=== PATIENT | female | born 1995 | race Caucasian/White ===

== ENCOUNTER 2024-10-27 15:20 | Outpatient (RCR) | payer SELFPAY ==
[2024-10-27 16:46] LABS: HCG Quantitative 522 mIU/mL
[2024-10-29 12:57] LABS: HCG Quantitative 1210 mIU/mL
== END 2024-10-31 12:31 | disposition home or self-care (01) ==
LOC: LAB 15:20
PROVIDERS: PCP Obstetrics & Gynecology; Visit Provider Obstetrics & Gynecology
DX: N92.6 Irregular menstruation, unspecified (principal)
CPT/HCPCS: 36415; 84702

== ENCOUNTER 2024-10-30 09:18 | Emergency (ER) | payer MEDICAID, SELFPAY ==
[2024-10-30 09:24] VITALS: BP 134/79; PULSE 76; TEMP 36.6; O2SAT 99; BMI 37.6
--- NOTE | 2024-10-30 09:34 | ED_ITS ---
HPI HPI - General Adult General Chief complaint: Vaginal Bleeding Stated complaint: VAGINAL BLEEDING/2-3 WEEKS Time Seen by Provider: 10/30/24 09:21 Source: patient Mode of arrival: walk-in Limitations: no limitations History of Present Illness HPI narrative: 29-year-old female who is 1 para 0 presents for light vaginal bleeding. LMP was September 07. Yesterday she had outpatient hCG titer and it was 1210. For 2 days she has had light spotting, only when she wipes. It has not been as heavy as a regular period. She has had some slight cramping but no severe pain. Related Data Home Medications ?Medication ?Instructions ?Recorded ?Confirmed No Known Home Medications 10/30/24 10/30/24 Allergies Allergy/AdvReac Type Severity Reaction Status Date / Time amoxicillin Allergy Severe Anaphylaxis Verified 10/30/24 09:23 Opioid HPI Opioid Management Most Recent Opioid Data: No Data to Display Review of Systems ROS Narrative A ten point review of systems is negative except as noted above. PFSH PFSH Social History Little interest or pleasure in doing things: not at all Feeling down, depressed, or hopeless: not at all Exam Narrative Exam Narrative: Nurses note and vital signs reviewed and patient is not hypoxic. General: The patient appears well and in no apparent distress. Patient is resting comfortably on cart. Skin: Warm, dry, no pallor noted. There is no rash noted. Head: Normocephalic, atraumatic Eye: Normal conjunctiva, no drainage Ears, Nose, Mouth, and Throat: oral mucosa is moist. Nares patent. Cardiovascular: Regular Rate and Rhythm Respiratory: Patient is in no distress, no accessory muscle use, lungs are clear to auscultation, no wheezing, rales or rhonchi Back: non-tender GI: Soft and nontender Musculoskeletal: The patient has no evidence of calf tenderness, no pitting edema, symmetrical pulses noted bilaterally Neurological: A&O, normal speech Psychiatric: Cooperative Constitutional Vital Signs, click to edit/add: Last Vital Signs Temp 98 F 10/30/24 09:24 Pulse 76 10/30/24 09:24 Resp 18 10/30/24 09:24 BP 134/79 10/30/24 09:24 Pulse Ox 99 10/30/24 09:24 O2 Del Method Room Air 10/30/24 09:24 Course Vital Signs Vital signs: Vital Signs Temperature 98 F 10/30/24 09:24 Pulse Rate 76 10/30/24 09:24 Respiratory Rate 18 10/30/24 09:24 Blood Pressure 134/79 10/30/24 09:24 Pulse Oximetry 99 10/30/24 09:24 Oxygen Delivery Method Room Air 10/30/24 09:24 Temperature 98 F 10/30/24 09:24 Pulse Rate 76 10/30/24 09:24 Respiratory Rate 18 10/30/24 09:24 Blood Pressure 134/79 10/30/24 09:24 Pulse Oximetry 99 10/30/24 09:24 Oxygen Delivery Method Room Air 10/30/24 09:24 Medical Decision Making MDM Narrative Medical decision making narrative: hCG titer is 451, yesterday it was 1210. Blood type is be positive. Case discussed with Dr. Seals and the patient will be discharged home. He will see her in the office this week. I have no clinical suspicion of an ectopic . Findings were discussed thoroughly with the patient. Treatment diagnosis and follow-up were discussed with the patient. Differential Diagnosis Differential Diagnosis: Miscarriage, ectopic , vaginal bleeding in Lab Data Lab results reviewed: Yes I reviewed the patient's lab results Labs: Lab Results 10/30/24 Range/Units 09:35 WBC 10.1 (4.0-11.0) 10^3/uL RBC 4.67 (4.20-5.40) 10^6/uL Hgb 13.7 (12.0-16.0) g/dL Hct 39.7 (36.0-48.0) % MCV 85.0 (81.0-99.0) fL MCH 29.3 (26.7-34.0) pg MCHC 34.5 (29.9-35.2) g/dL RDW 12.3 (11.0-15.0) % Plt Count 401 (150-450) 10^3/uL MPV 9.5 (9.5-13.5) fL Neut % (Auto) 62.9 (43.0-75.0) % Lymph % (Auto) 28.3 (20.5-60.0) % Butler % (Auto) 6.4 (1.7-12.0) % Eos % (Auto) 1.3 (0.9-7.0) % Baso % (Auto) 0.8 (0.2-2.0) % Neut # (Auto) 6.4 (1.4-6.5) 10^3/uL Lymph # (Auto) 2.9 (1.2-3.8) 10^3/uL Butler # (Auto) 0.7 (0.3-0.8) 10^3/uL Eos # (Auto) 0.1 (0.0-0.7) 10^3/uL Baso # (Auto) 0.1 (0.0-0.1) 10^3/uL Abs Immat Gran (auto) 0.03 (0.00-0.03) 10^3/uL Imm/Tot Granulo (auto) 0.3 (0.0-0.5) % Sodium 140 (136-145) mmol/L Potassium 4.0 (3.5-5.1) mmol/L Chloride 104 (98-107) mmol/L Carbon Dioxide 26.0 (21.0-32.0) mmol/L Anion Gap 14.0 BUN 11.0 (7.0-18.0) mg/dL Creatinine 0.79 (0.55-1.02) mg/dL Est GFR ( Amer) >60 (>=60 mL/min/1.73m^2) Est GFR (Non-Af Amer) >60 (>=60 mL/min/1.73m^2) BUN/Creatinine Ratio 13.9 Glucose 103 (74-106) mg/dL Calcium 9.0 (8.5-10.1) mg/dL HCG, Quant 451 mIU/mL Blood Type B Positive Discharge Plan Discharge Chief Complaint: Vaginal Bleeding Clinical Impression: Miscarriage Patient Disposition: Home, Self-Care Time of Disposition Decision: 10:26 Condition: Good Mode of Transportation: Private Vehicle Prescriptions / Home Meds: No Action No Known Home Medications Print Language: Albanian Instructions: Miscarriage (ED) Additional Instructions: Call Dr. Seals's office in the morning, he will see you this week. Referrals: Physician,Non-Staff, [Primary Care Provider] - 1 week
[2024-10-30 09:51] LABS: Basophils Absolute Auto 0.1 10^3/uL (0.0-0.1); Basophils Percent Auto 0.8 % (0.2-2.0); Eosinophils Absolute Auto 0.1 10^3/uL (0.0-0.7); Eosinophils Percent Auto 1.3 % (0.9-7.0); Hematocrit 39.7 % (36.0-48.0); Hemoglobin 13.7 g/dL (12.0-16.0); Immature Granulocytes Abs Auto 0.03 10^3/uL (0.00-0.03); Immature Granulocytes Pct Auto 0.3 % (0.0-0.5); Lymphocytes Absolute Auto 2.9 10^3/uL (1.2-3.8); Lymphocytes Percent Auto 28.3 % (20.5-60.0); Mean Corpuscular HGB Conc 34.5 g/dL (29.9-35.2); Mean Corpuscular Hemoglobin 29.3 pg (26.7-34.0); Mean Platelet Volume 9.5 fL (9.5-13.5); Monocytes Absolute Auto 0.7 10^3/uL (0.3-0.8); Monocytes Percent Auto 6.4 % (1.7-12.0); Neutrophils Absolute Auto 6.4 10^3/uL (1.4-6.5); Neutrophils Percent Auto 62.9 % (43.0-75.0); Platelet Count 401 10^3/uL (150-450); Red Blood Count 4.67 10^6/uL (4.20-5.40); Red Cell Distribution Width 12.3 % (11.0-15.0); White Blood Count 10.1 10^3/uL (4.0-11.0)
[2024-10-30 10:09] LABS: BUN Creatinine Ratio 13.9; Chloride 104 mmol/L (98-107); Estimated GFR (African America >60 (>=60 mL/min/1.73m^2); Estimated GFR (Non-African Ame >60 (>=60 mL/min/1.73m^2); Glucose 103 mg/dL (74-106); Sodium 140 mmol/L (136-145)
[2024-10-30 10:13] LABS: HCG Quantitative 451 mIU/mL
== END 2024-10-30 10:32 | disposition home or self-care (01) ==
PROVIDERS: Emergency Provider Emergency Medicine
DX: O03.9 Complete or unspecified spontaneous abortion without complication (principal)
CPT/HCPCS: 36415; 80048; 84702; 85025; 86900; 86901; 99283

== ENCOUNTER 2024-10-31 08:37 | Outpatient (RCR) | payer MEDICAID, SELFPAY ==
--- OUTSIDE RECORDS SUMMARY | 2024-10-31 08:56 | XMS_ITS | CCD ---
Author Organization [facility] Inform ion Partnership [facility] Care Team Providers Care Coding Consultant Name Role Phone DR NACHO DUKES Admitting Unavailable DR NACHO DUKES Attending Unavailable REQUEST, NONE LISTED Primary Care Unavaila DR NACHO Akhtar Consulting Unavailable Charity Magallanes Unavailable LUIS A JOE Primary Care Unavailable JENNIFER VEE Attending Unavailable Unavailable Primary Care Provider Unavailabl e Medications Current Medications Medication Drug Class(es) Dates Sig (Normalized) Sig (Original) (1 source) Active metFORMIN (1 source) Biguanide metFORMIN HCl Ac tive Problems Active Problems Problem Classification Problem Date Documented Date Episodic/Chronic Allergic reactions (1 source) Anaphylactic shock, unspecified, initial encounter; Translations: [Anaphylactic shock, unspecified, initial encounter] Onset: 10-23-2023 Episodic Immunizations and screening for infectious disease (3 sources) Encounter for screening for human papillomavirus (HPV); Translations: [Contact with and (suspected) exposure to other viral communicable diseases] Onset: 08-14-2022 Episodic Other screening for suspected conditions (not mental disorders or infectious disease) (4 sources) Encounter for screening for malignant neoplasm of cervix; Translations: [ENC SCREENING MALIG NEOPLASM CERV] Onset: 08-13-2022 Episodic Past or Other Problems Problem Classification Problem Date Documented Da te Episodic/Chronic Viral infection (1 source) COVID-19 Results Test Name Value Interpretation Reference Range Facility [facility] PREG QUANT HCGon 025 HCG QUANTITATIVE 1210 mIU/mL [facility] Comment on above: 5-50 0.2-1 WEEK 50-500 1-2 WEEKS 100-5,000 2-3 WEEKS 500-10,000 3-4 WEEKS 1,000-50,000 4-5 WEEKS 10,000-100,000 5-6 WEEKS 15,000-200,000 6-8 WEEKS 10,000-100,000 2-3 MONTHS [facility] PREG QUANT HCGon 025 HCG QUANTITATIVE 522 mIU/mL [facility] Comment on above: 5-50 0.2-1 WEEK 50-500 1-2 WEEKS 100-5,000 2-3 WEEKS 500-10,000 3-4 WEEKS 1,000-50,000 4-5 WEEKS 10,000-100,000 5-6 WEEKS 15,000-200,000 6-8 WEEKS 10,000-100,000 2-3 MONTHS [facility] CBC with Diffon 10-23-2023 Abs. Basophil <0.03 Normal 0.00-0.20 [facility] Comment on above: Performed By: #### C P, CDP #### [facility] [address] [place] [address] [place] [address] Voltage Tester: Clovis Rivera MD Abs.Imm.Granulocyt e 0.06 k/uL Normal 0.00-0.30 [facility] Comment on above: Performed By: #### C P, CDP #### [address] [place] [address] Voltage Tester: Clovis Rivera MD Abs.Neutrophil (Seg) 6.52 k/uL Normal 1.50-8.10 [facility] Comment on above: Performed By: #### C P, CDP #### [address] [place] [id number] Voltage Tester: Clovis Rivera MD Basophils/100 WBC (Bld) 0 % Normal 0-2 [facility] Comment on above: Performed By: #### C P, CDP #### [address] [place] [address] Voltage Tester: Clovis Rivera MD Eosinophils (Bld) [#/Vol] 0.20 10*3/uL Normal 0.00-0.44 [facility] Comment on above: Performed By: #### C P, CDP #### [address] [place], [facility] Voltage Tester: Clovis Rivera MD Eosinophils/100 WBC (Bld) 2 % Normal 1-4 [facility] Comment on above: Performed By: #### C P, CDP #### [address] [place], [facility] Voltage Tester: Clovis Rivera MD Erythrocyte distribution width (RBC) [Ratio] 11.9 % Normal 11.8-14.4 [facility] Comment on above: Performed By: #### C P, CDP #### [address] [place], [facility] Voltage Tester: Clovis Rivera MD Hematocrit (Bld) [Volume fraction] 38.5 % Normal 36.3-47.1 [facility] Comment on above: Performed By: #### C P, CDP #### [address] [place], [facility] Voltage Tester: Clovis Rivera MD Hemoglobin (Bld) [Mass/Vol] 13.3 g/dL Normal 11.9-15.1 [facility] Comment on above: Performed By: #### C P, CDP #### [address] [place], [place] [address] Voltage Tester: Clovis Rivera MD Immature granulocytes/100 WBC (Bld) 1 % High 0 [facility] Comment on above: Performed By: #### C P, CDP #### [address] [place], [facility] Voltage Tester: Clovis Rivera MD Lymphocytes (Bld) [#/Vol] 3.61 10*3/uL Normal 1.10-3.70 [facility] Comment on above: Performed By: #### C P, CDP #### [address] [place], [facility] Voltage Tester: Clovis Rivera MD Lymphocytes/100 WBC (Bld) 33 % Normal 24-43 [facility] Comment on above: Performed By: #### C P, CDP #### [facility] [address] [place], [facility] Voltage Tester: Clovis Rivera MD MCH (RBC) [Entitic mass] 29.9 pg Normal 25.2-33.5 [facility] Comment on above: Performed By: #### C P, CDP #### [facility] [address] [place], [facility] Voltage Tester: Clovis Rivera MD MCHC (RBC) [Mass/Vol] 34.5 g/dL Normal 28.4-34.8 [facility] Comment on above: Performed By: #### C P, CDP #### [address] [place], [facility] Voltage Tester: Clovis Rivera MD MCV (RBC) [Entitic vol] 86.5 fL Normal 82.6-102.9 [facility] Comment on above: Performed By: #### C P, CDP #### [address] [place], [facility]83 Voltage Tester: Clovis Rivera MD Monocytes (Bld) [#/Vol] 0.43 10*3/uL Normal 0.10-1.20 [facility] Comment on above: Performed By: #### C P, CDP #### [facility] [address] [place], [facility] Voltage Tester: Clovis Rivera MD Monocytes/100 WBC (Bld) 4 % Normal 3-12 [facility] Comment on above: Performed By: #### C P, CDP #### [facility] [address] [place], [facility]83 Voltage Tester: Clovis Rivera MD Neutrophil (Seg) 60 % Normal 36-65 [facility] Comment on above: Performed By: #### C P, CDP #### [facility] [address] [place], [place] [id number] Voltage Tester: Clovis Rivera MD NRBC Automated 0.0 per 100 WBC Normal 0.0 [facility] Comment on above: Performed By: #### C P, CDP #### [facility] [address] [place], [place] [id number] Voltage Tester: Clovis Rivera MD Platelet mean volume (Bld) [Entitic vol] 9.8 fL Normal 8.1-13.5 [facility] Comment on above: Performed By: #### C P, CDP #### [address] [place] [address] Voltage Tester: Clovis Rivera MD Platelets (Bld) [#/Vol] 390 10*3/uL Normal 138-453 [facility] Comment on above: Performed By: #### C P, CDP #### [address] [place], [place] [id number] Voltage Tester: Clovis Rivera MD RBC (Bld) [#/Vol] 4.45 10*6/uL Normal 3.95-5.11 [facility] Comment on above: Performed By: #### C P, CDP #### [address] [place] [address] Voltage Tester: Clovis Rivera MD WBC (Bld) [#/Vol] 10.8 10*3/uL Normal 3.5-11.3 [facility] Comment on above: Performed By: #### C P, CDP #### [facility] [address] [place] [address] Voltage Tester: Clovis Rivera MD Comp Metabolic Profon 2023 Albumin [Mass/Vol] 3.9 g/dL Normal 3.5-5.2 [facility] Comment on above: Performed By: #### C P, CDP #### [facility] [address] [place], [place] [id number] Voltage Tester: Clovis Rivera MD Albumin/Glob Ratio 1.5 Normal 1.0-2.5 [facility] Comment on above: Performed By: #### C P, CDP #### [facility] [address] [place], [place] [id number] Voltage Tester: Clovis Rivera MD Alkaline Phos 46 U/L Normal 35-104 [facility] Comment on above: Performed By: #### C P, CDP #### [facility] [address] [place], [place] [id number] Voltage Tester: Clovis Rivera MD ALT [Catalytic activity/Vol] 23 U/L Normal 5-33 [facility] Comment on above: Performed By: #### C P, CDP #### [facility] [address] [place], [place] [phone] Voltage Tester: Clovis Rivera MD Anion gap [Moles/Vol] 13 mmol/L Normal 9-17 [facility] Comment on above: Performed By: #### C P, CDP #### [facility] [address] [place], [place] [id number] Voltage Tester: Clovis Rivera MD AST [Catalytic activity/Vol] 21 U/L Normal <32 [facility] Comment on above: Performed By: #### C P, CDP #### [facility] [address] [place], [place] [id number] Voltage Tester: Clovis Rivera MD Bilirubin [Mass/Vol] 0.2 mg/dL Low 0.3-1.2 [facility] Comment on above: Performed By: #### C P, CDP #### [facility] [address] [place], [place] [phone] Voltage Tester: Clovis Rivera MD BUN/CRE Ratio 14 Normal 9-20 [facility] Comment on above: Performed By: #### C P, CDP #### [facility] [address] [place] [address] Voltage Tester: Clovis Rivera MD Calcium [Mass/Vol] 8.6 mg/dL Normal 8.6-10.4 [facility] Comment on above: Performed By: #### C P, CDP #### [facility] [address] [place] [address] Voltage Tester: Clovis Rivera MD Chloride [Moles/Vol] 102 mmol/L Normal 98-107 [facility] Comment on above: Performed By: #### C P, CDP #### [facility] [address] [place], [place] [phone] Voltage Tester: Clovis Rivera MD CO2 [Moles/Vol] 24 mmol/L Normal 20-31 [facility] Comment on above: Performed By: #### C P, CDP #### [facility] [address] [place] [address] Voltage Tester: Clovis Rivera MD Creatinine [Mass/Vol] 0.7 mg/dL Normal 0.5-0.9 [facility] Comment on above: Performed By: #### C P, CDP #### [facility] [address] [place] [address] Voltage Tester: Clovis Rivera MD GFR/1.73 sq M.predicted among non-blacks MDRD (S/P/Bld) [Vol rate/Area] mL/min/{1.73_m2} Normal >60 [facility] Comment on above: Result Comment: These results are not intended for use in patients <18 years of age. eGFR results are calculated without a race factor using the 2020 CKD-EPI equation. Careful clinical correlation is recommended, particularly when comparing to results calculated using previous equations. The CKD-EPI equation is less accurate in patients with extremes of muscle mass, extra-renal metabolism of creatine, excessive creatine ingestion, or following therapy that affects renal tubular secretion. Performed By: #### C P, CDP #### [facility] [address] [place] [address] Voltage Tester: Clovis Rivera MD Glucose [Mass/Vol] 179 mg/dL High 70-99 [facility] Comment on above: Performed By: #### C P, CDP #### [facility] [address] [place], [place] [id number] Voltage Tester: Clovis Rivera MD Potassium [Moles/Vol] 3.9 mmol/L Normal 3.7-5.3 [facility] Comment on above: Performed By: #### C P, CDP #### [address] [place], [place] [phone] Voltage Tester: Clovis Rivera MD Protein [Mass/Vol] 6.5 g/dL Normal 6.4-8.3 [facility] Comment on above: Performed By: #### C P, CDP #### [address] [place], [place] [id number] Voltage Tester: Clovis Rivera MD Sodium [Moles/Vol] 139 mmol/L Normal 135-144 [facility] Comment on above: Performed By: #### C P, CDP #### [facility] [address] [place], [place] [phone] Voltage Tester: Clovis Rivera MD Urea nitrogen [Mass/Vol] 10 mg/dL Normal 6-20 [facility] Comment on above: Performed By: #### C P, CDP #### [facility] [address] [place] [address] Voltage Tester: Clovis Rivera MD Magnesiumon 10-23-2023 Magnesium [Mass/Vol] 1.7 mg/dL Normal 1.6-2.6 [facility] Comment on above: Performed By: #### M G #### [facility] [address] [place] [address] Voltage Tester: Clovis Rivera MD PAP ACOG PANEL 2: 21 to 29on 08-18-2022 . . Normal [facility] Comment on above: Performed By: #### [id number] #### [facility] [address] [place] [address] Dr. Harvey Dykes Age Gdln ACOG Testing - [facility] Comment on above: Performed By: #### [id number] #### [facility] [address] [place] [address] Dr. Harvey Dykes DIAGNOSIS: Comment [facility] Comment on above: Result Comment: NEGA TIVE FOR INTRAEPITHELIAL LESION OR MALIGNANCY. Performed By: #### [id number] #### [facility] [address] [place] [address] Dr. Harvey Dykes Methodology: Comment [facility] Comment on above: Result Comment: This liquid based ThinPrep(R) pap test was screened with the use of an image guided system. Performed By: #### [id number] #### [facility] [address] [place] [address] Dr. Harvey Dykes Note: Comment [facility] Comment on above: Result Comment: The Pap smear is a screening test designed to aid in the detection of premalignant and malignant conditions of the uterine cervix. It is not a diagnostic procedure and should not be used as the sole means of detecting cervical cancer. Both false-positive and false-negative reports do occur. . Performed By: #### [id number] #### [facility] [address] [place] [address] Dr. Harvey Dykes Performed by: Comment [facility] Comment on above: Result Comment: Lisseth Stanton, Drawing Hand (ASCP) Performed By: #### [id number] #### [facility] [address] [place] [address] Dr. Harvey Dykes Reflex Criteria: Comment [facility] Comment on above: Result Comment: The HPV DNA reflex criteria were not met with this specimen result therefore, no HPV testing was performed. . Performed By: #### [id number] #### [facility] [address] [place] [address] [address] Harvey Dykes Specimen adequacy: Comment Normal [facility] Comment on above: Result Comment: Sati sfactory for evaluation. Endocervical and/or squamous metaplastic cells (endocervical component) are present. Performed By: #### [id number] #### [facility] [address] [address] [address] Harvey Dykes COVID/FLU/RSV RT-PCRon 07-15 SARS-CoV-2 (COVID-19) RNA ALLISON+probe Ql (Unsp spec) Positive [facility] Other COVID/FLU/RSV RT-PCR Negative [facility] Other Vital Signs Date Time Vital Sign Value Performing Clinician Facility 07-15-2022 12:30-0500 Body height 170.18 cm Charity Magallanes Other [facility] Other 07-15-2022 12:30-0500 Body mass index (BMI) [Ratio] 32.89 kg/m2 Charity Magallanes Other [facility] Other 07-15-2022 12:30-0500 Body temperature 97.8 [degF] Charity Magallanes Other [facility] Other 07-15-2022 12:30-0500 Body weight 95.26 kg Charity Magallanes Other [facility] Other 07-15-2022 12:30-0500 Respiratory rate 18 /min Charity Magallanes Other [facility] Other 07-15-2022 12:30-0500 SaO2% (BldA) [Mass fraction] 98 % Charity Magallanes Other [facility] Other Encounters Encounter Date Encounter Type Care Provider Facility Start: 10-29-2024 End: 10-29-2024 [facility] Result Encounter Nacho Bozena DO Work Phone: [facility] Unsolicited Start: 10-29-2024 End: 10-29-2024 [facility] Result Encounter Nacho Bozena DO Work Phone: [facility] Unsolicited Start: 10-27-2024 End: 10-27-2024 [facility] Result Encounter Nacho Bozena DO Work Phone: [facility] Unsolicited Start: 10-27-2024 End: 10-27-2024 [facility] Result Encounter Nacho Bozena DO Work Phone: [facility] Unsolicited Start: 10-23-2023 End: 10-23-2023 Emergency department patient visit LUIS A [facility] Start: 08-13-2022 End: 08-13-[address] NACHO DUKES Facility: Start: 07-15-2022 End: 07-15-2022 ambulatory Charity Magallanes Other [facility] Other Start: 07-15-2022 Office outpatient ne w 30 minutes Charity Magallanes [facility] Procedures Date Procedure Procedure Detail Performing Clinician Start: 10-29-2024 [facility] PREG QUANT HCG Core y Bozena DO Work Phone: Start: 10-27-2024 [facility] PREG QUANT HCG Core y Bozena DO Work Phone: Payers Date Payer Category Payer Unknown [id number] 1961 Unknown [id number] Social History Date Type Detail Facility Sex Assigned At [facility] Other Tobacco smoking status NHIS Tobacco smoking consumption unknown [facility] Start: 1995 Sex assigned at Not on file [facility] Evaluation note 07-15-2022 Note Date & Type Note Facility 07-15-2022 Evaluation note Encounter Date Diagnosis Assessment Notes Jul, Contact with and (suspected) exposure to other viral communicable diseases (ICD-10 - Z20.828) Jul, COVID-19 (ICD-10 - U07.1) COVID PCR test performed in office today. Advised patient that test was positive. Influenza A/B/RSV PCR test negative. Instructed patient to isolate per CDC guidelines for 5 days from symptom onset, mask 5 days following. May return to work/activities outside home after isolation period as long as symptoms are improving and has been afebrile for 24 hours without use of antipyretic. Advised patient that treatment of COVID is with viral supportive care, OTC cold medications as directed, Tylenol/Motrin as needed for body aches/fever. Increase fluids and rest. Encouraged use of cool mist humidifier. Follow-up with PCP to advise of positive result and further management. Immediate eval for SOB, difficulty, chest pain, fevers that do not break with antipyretic or any other concerning symptoms as reviewed on patient education handout. Patient verbalizes understanding and is agreeable to treatment plan. Patient left in stable condition [facility] Other History general Narrative - Reported Note Date & Type Note Facility History general Narrative - Reported Type Medical History SVT (supraventricular tachycardi a) Surgical History tonsillectomy Hospitalization History [facility] Other Summary Purpose Family History No Family History Records FoundNo Family History Records Found Advance Directives No Advanced Directives Records FoundNo Advanced Directives Records Found Additional Source Comments INFORMATION SOURCE (unrecogn ized section and content) DATE CREATED AUTHOR 08/18/2022 [facility] DATE CREATED AUTHOR AUTHOR'S ORGANIZ ATION 10/27/2023 [facility] REASON FOR VISIT (unrecogniz ed section and content) headache, chest hurts, throa t hurts, couging FOR RECORDS PERTAINING TO PATIENTS WHO ARE OR HAVE BEEN ENROLLED IN A CHEMICAL DEPENDENCY/SUBSTANCEABUSE PROGRAM, SOME INFORMATION MAY BE OMITTED. This clinical summary was aggregated from multiple sources. Caution should be exercised in using it in the provision of clinical care. This summary normalizes information from multiple sources, and as a consequence, information in this document may materially change the coding, format and clinical context of patient data. In addition, data may be omitted in some cases. CLINICAL DECISIONS SHOULD BE BASED ON THE PRIMARY CLINICAL RECORDS. [facility] [employer] [facility]. provides no warranty or guarantee of the accuracy or completeness of information in this document.
[2024-10-31 09:39] LABS: HCG Quantitative 218 mIU/mL
== END 2024-10-31 12:48 | disposition home or self-care (01) ==
LOC: LAB 08:37
PROVIDERS: Visit Provider Obstetrics & Gynecology
DX: N92.6 Irregular menstruation, unspecified (principal)
CPT/HCPCS: 36415; 84702

== ENCOUNTER 2024-11-07 08:33 | Outpatient (RCR) | payer MEDICAID, SELFPAY ==
[2024-11-07 09:43] LABS: HCG Quantitative 10 mIU/mL
[2024-11-14 09:41] LABS: HCG Quantitative <1 mIU/mL
== END 2024-11-30 09:49 | disposition home or self-care (01) ==
LOC: LAB 08:33
PROVIDERS: Visit Provider Obstetrics & Gynecology
DX: O03.9 Complete or unspecified spontaneous abortion without complication (principal)
CPT/HCPCS: 36415; 84702